=== PATIENT | female | born 1990 | race Caucasian/White ===

== ENCOUNTER 2021-03-03 11:40 | Observation (INO) | payer OTHER ==
[2021-03-03 12:26] LABS: Absolute Neutrophil Ct (ANC) 10.26 (1.4-6.9); BASOPHIL % 0.2 % (0.0-0.4); Basophil (Absolute #) 0.02 (0-0.4); Eosinophil (Absolute #) 0.13 (0-0.5); Hematocrit 37.8 % (35-47); Hemoglobin 12.8 gm/dl (12.0-16.0); Lymphocyte (Absolute #) 1.47 (1.0-4.6); Lymphocytes % 11.6 % (24.0-44.0); Mean Cell Volume 96.9 fl (78-100); Mean Corpuscular Hemoglobin 32.8 pg (26-32); Mean Corpuscular Hgb Concent. 33.9 g/dl (32-36); Mean Platelet Volume 10.9 fl (7.5-11.0); Monocyte (Absolute #) 0.77 (0.0-1.3); Monocytes % 6.1 % (0.0-12.0); Neutrophil % 81.1 % (36.0-66.0); Platelet Count 237 K/mm3 (150-450); White Blood Count 12.7 K/mm3 (4.0-10.5)
[2021-03-03 12:33] LABS: ALBUMIN 3.2 g/dL (3.5-5.0); ALKALINE PHOSPHATASE 191 U/L (38-126); BLOOD UREA NITROGEN 4 mg/dL (7-17); CHLORIDE 106 mmol/L (98-107); Calcium 9.3 mg/dL (8.4-10.2); Carbon Dioxide 22 mmol/L (22-30); Creatinine 1 0.51 mg/dL (0.52-1.04); EST GLOMERULAR FILTRATION RATE > 60.0 ML/MIN; Glucose 102 mg/dL (74-106); Potassium 4.1 mmol/L (3.5-5.1); SGOT/AST 33 U/L (14-36); SGPT/ALT 14 U/L (0-35); SODIUM 134 mmol/L (137-145); Total Protein 6.2 g/dL (6.3-8.2); Uric Acid 4.3 mg/dL (2.6-6.0)
--- NOTE | 2021-03-03 13:37 | XRAY ---
Indication: High blood pressure. Ultrasound biophysical profile exam performed. There is a single intrauterine with heart rate 134 BPM. Four-quadrant REY is 10.6 cm, largest pocket 5.6 cm. 2 points given for breathing, movements, tone, and qualitative amniotic fluid volume. Impression: Total biophysical profile score is 8 out of 8.
--- NOTE | 2021-03-03 13:52 | XRAY ---
Indication: Preeclampsia. High blood pressure. 2-dimensional OB ultrasound performed. Comparison: December 11, 2020. Again there is a single viable intrauterine in breech presentation. heart rate 137 bpm. anatomy previously documented. Fundal placenta without abruption/previa. BPD measures 9.20 cm corresponding to 37 weeks 3 days. HC measures 33.28 cm corresponding to 38 weeks 0 days. AC measures 34.33 cm corresponding to 38 weeks 2 day. FL measures 6.07 cm corresponding to 31 weeks 4 days. Estimated weight 6 lbs. 9 oz., +/-1 lb. 0 oz. Approximately 54 percentile. REY is 10.7 cm. Impression: Again single viable intrauterine with mean gestational age 36 weeks 2 days. Normal progression of . No new or acute findings.
[2021-03-03 17:28] VITALS: PULSE 76
[2021-03-03 17:30] VITALS: BP 132/87
== END 2021-03-03 16:05 | disposition home or self-care (01) ==
LOC: OB 11:40
PROVIDERS: ADMIT Family Medicine; ATTEND Family Medicine
DX: Z34.83 Encounter for supervision of other normal pregnancy, third trimester (principal); Z3A.36 36 weeks gestation of pregnancy
CPT/HCPCS: 36415; 59025; 76816; 76818; 80053; 84550; 85025; G0378

== ENCOUNTER 2021-03-17 06:10 | Inpatient (IN) | payer OTHER ==
[~2021-03-17 06:10] MED LIST: CEFAZOLIN 2 GM-D5W BAG** 2 GM/50 ML ML IV SCH; Lactated Ringers 1,000 ML IV ONE; Lactated Ringers 1,000 ML IV SCH; Pepcid 20 MG VIAL IV SCH; Reglan 10 MG/2 ML IV SCH; SOD CITRATE-CITRIC ACID SOLN PO ONE
[2021-03-17 06:55] LABS: Amphetamine,Urine NEGATIVE (NEGATIVE); Barbiturate,Urine NEGATIVE (NEGATIVE); Benzodiazepine,Urine NEGATIVE (NEGATIVE); Cocaine,Urine NEGATIVE (NEGATIVE); Methadone,Urine NEGATIVE (NEGATIVE); Opiate,Urine NEGATIVE (NEGATIVE); PCP,Urine NEGATIVE (NEGATIVE); THC,Urine NEGATIVE (NEGATIVE)
[2021-03-17 07:23] LABS: Absolute Neutrophil Ct (ANC) 8.07 (1.4-6.9); BASOPHIL % 0.1 % (0.0-0.4); Basophil (Absolute #) 0.01 (0-0.4); Eosinophil % 1.7 % (0.00-5.0); Eosinophil (Absolute #) 0.18 (0-0.5); Hematocrit 38.3 % (35-47); Hemoglobin 13.1 gm/dl (12.0-16.0); Lymphocyte (Absolute #) 1.83 (1.0-4.6); Mean Cell Volume 96.7 fl (78-100); Mean Corpuscular Hemoglobin 33.1 pg (26-32); Mean Corpuscular Hgb Concent. 34.2 g/dl (32-36); Mean Platelet Volume 11.7 fl (7.5-11.0); Monocyte (Absolute #) 0.65 (0.0-1.3); Monocytes % 6.1 % (0.0-12.0); Neutrophil % 75.1 % (36.0-66.0); Platelet Count 215 K/mm3 (150-450); Red Blood Count 3.96 M/mm3 (4.1-5.4); Red Cell Distribution Width 14.4 % (11.5-14.0); White Blood Count 10.7 K/mm3 (4.0-10.5)
[2021-03-17 07:24] LABS: INR 0.97 (0.8-3.0)
[2021-03-17 07:26] LABS: PTT 27.7 SECONDS (25.3-37.0)
[2021-03-17] MEDS ORDERED: BICITRA 30 ML CUP ONE (07:36)
[2021-03-17] MEDS ORDERED: CEFAZOLIN 2 GM-D5W BAG** 2 GM/50 ML ML IV ONE (07:36)
[2021-03-17 08:14] LABS: ABO TYPING O; RH TYPING POSITIVE
[2021-03-17 08:21] LABS: Antibody Screen NEGATIVE (NEGATIVE)
[2021-03-17] MEDS ORDERED: Astramorph-Pf 5 MG/10 ML IJ ONE (08:30)
[2021-03-17] MEDS ORDERED: PHENYLEPHRINE HCL ONE (08:44)
[2021-03-17] MEDS ORDERED: Pitocin 10 UNITS/ML ONE ×2 (08:44→09:24)
[2021-03-17] MEDS ORDERED: MARCAINE 0.5%-EPI 1:200,000 VL IJ ONE (09:00)
[2021-03-17] MEDS ORDERED: TUCKS TP PRN (09:00)
[2021-03-17] MEDS ORDERED: LANSINOH 40 GM TOP PRN (09:00)
[2021-03-17] MEDS ORDERED: PERCOCET TABLET 5/325MG PO PRN (09:00)
[2021-03-17] MEDS ORDERED: BENADRYL 50 MG/ML IV PRN (09:00)
[2021-03-17] MEDS ORDERED: Mylicon 80MG PO PRN (09:00)
[2021-03-17] MEDS ORDERED: HOLD NARCOTIC ANALGESICS AND SEDATIVES X24 HR MC PRN (09:00)
[2021-03-17] MEDS ORDERED: DEMEROL 50 MG IV PRN (09:00)
[2021-03-17] MEDS ORDERED: Dermoplast Spray TP PRN (09:00)
[2021-03-17] MEDS ORDERED: MORPHINE SULFATE 2 MG INJ IV PRN (09:00)
[2021-03-17] MEDS ORDERED: Sodium Chloride 0.9% 10 ML FLUSH Syringe IJ PRN (09:00)
[2021-03-17] MEDS ORDERED: Marcaine 0.5%/Epinephrine 10 ML ONE (09:00)
[2021-03-17] MEDS ORDERED: CLARITIN 10 MG PO PRN (09:00)
[2021-03-17] MEDS ORDERED: Nubain 10 MG/ML IV PRN (09:00)
[2021-03-17] MEDS ORDERED: Zofran 4 MG/2 ML VIAL IV PRN (09:00)
[2021-03-17] MEDS ORDERED: Narcan 0.4 MG/ML IV PRN (09:00)
[2021-03-17 10:50] LABS: Appearance SLIGHTLY CLOUDY (CLEAR); Bilirubin NEGATIVE (NEGATIVE); Blood SMALL Ery/ul (0-5); Epithelial Cells RARE /HPF (FEW); Glucose NEGATIVE (NEGATIVE); Ketones NEGATIVE (NEGATIVE); Leukocyte Esterase NEGATIVE (NEGATIVE); Mucus SLIGHT /HPF (NEGATIVE); Nitrite NEGATIVE (NEGATIVE); Non-Squamous Epithelial Cells FEW /HPF (FEW); Protein,Urine Dip 100 (Negative); Specific Gravity 1.017 (1.005-1.025); Urobilinogen NEGATIVE mg/dL (0-1)
[2021-03-17] MEDS: Dextrose 5%-Lr IV Solution 1000 ML 1,000 ML IV SCH ×2 (11:05→21:07)
[2021-03-17] MEDS ORDERED: TRANDATE 20 MG/4 ML SYRINGE IV PRN (11:17)
--- NOTE | 2021-03-17 13:24 | OP ---
SURGERY DATE/TIME: 03/17/2021 0810 PREOPERATIVE DIAGNOSES: 1) Breech presentation. 2) Gestational hypertension. 3) Term intrauterine . POSTOPERATIVE DIAGNOSES: 1) Breech presentation. 2) Gestational hypertension. 3) Term intrauterine . PROCEDURE: Primary low transverse section. SURGEON: Nikolay Yan M.D. ANESTHESIA: Spinal by [place] CRNA. ESTIMATED BLOOD LOSS: 400 cc. URINE OUTPUT: 50 ml clear straw-colored urine. SPECIMEN: Placenta was sent for pathology. DESCRIPTION OF PROCEDURE: After informed written consent was obtained, the patient was taken to the OR. She had spinal anesthesia placed and was prepped and draped in the usual sterile fashion after a Alejo catheter was inserted. After adequate level of anesthesia was assessed, a low transverse skin incision was made by knife. It was carried down through the subcutaneous fat to the level of the fascia which was nicked on both sides of the midline. The fascia was then extended horizontal using curved Campbell scissors. Next, the superior free edge of the fascia was grasped with Ame clamps and the underlying rectus muscles were dissected free. The same was repeated inferiorly. The peritoneal cavity was opened and extended in horizontal then a bladder flap was created and reflected over the lower uterine segment. Horizontal uterine incision was then made by knife and carried down to the level of the amniotic membranes which were carefully artificially ruptured. A viable male infant was delivered from the breech presentation. The baby passed meconium during delivery. Respiratory effort was slightly delayed but was present after stimulation. The oropharynx and nares were suctioned free. The cord was clamped and cut and then he was handed off to the awaiting nursery team. Placenta was manually extracted and the uterus was exteriorized. The uterine cavity was sponge curetted clean with lap sponge. The uterine incision was closed with #1 chromic in running locked fashion. A second layer was used to reinforce and control bleeding with good closure and good hemostasis achieved. Posterior cul-de-sac was wiped free of blood and clot with moist lap sponge and the uterus was returned to the peritoneal cavity where the lateral gutters were wiped free of blood and clot. The uterine incision was again carefully inspected and noted to have good closure and good hemostasis. Next, the fascia was closed with 0 Vicryl in running fashion with good closure and good hemostasis were achieved. The subcutaneous fat was irrigated with warm, sterile saline and any areas of bleeding were cauterized with electrocautery. Finally the skin layer was closed with 4-0 undyed Vicryl in running subcuticular fashion. Good closure and good hemostasis were achieved. Steri-Strips and occlusive dressing were placed over the incision and the patient was transferred to the recovery room in good condition.
[2021-03-17] MEDS: MOTRIN 400 MG PO PRN (21:06)
[2021-03-17] MEDS: Colace 100 MG PO SCH (21:06)
[2021-03-17] MEDS: FERREX 150 PO SCH (21:06)
[2021-03-17] MEDS ORDERED: Restoril 15 MG PO PRN (22:00)
[2021-03-18] MEDS: TYLENOL EXTRA STRENGTH 500 MG PO PRN ×3 (00:17→13:03)
[2021-03-18] MEDS: Dextrose 5%-Lr IV Solution 1000 ML 1,000 ML IV SCH (02:03)
[2021-03-18 05:52] LABS: Absolute Neutrophil Ct (ANC) 8.57 (1.4-6.9); BASOPHIL % 0.1 % (0.0-0.4); Basophil (Absolute #) 0.01 (0-0.4); Eosinophil % 0.6 % (0.00-5.0); Eosinophil (Absolute #) 0.07 (0-0.5); Hematocrit 33.1 % (35-47); Hemoglobin 11.1 gm/dl (12.0-16.0); Lymphocyte (Absolute #) 1.54 (1.0-4.6); Lymphocytes % 14.2 % (24.0-44.0); Mean Cell Volume 98.5 fl (78-100); Mean Corpuscular Hgb Concent. 33.5 g/dl (32-36); Mean Platelet Volume 11.6 fl (7.5-11.0); Monocyte (Absolute #) 0.62 (0.0-1.3); Monocytes % 5.7 % (0.0-12.0); Neutrophil % 79.4 % (36.0-66.0); Platelet Count 190 K/mm3 (150-450); Red Blood Count 3.36 M/mm3 (4.1-5.4); Red Cell Distribution Width 14.8 % (11.5-14.0); White Blood Count 10.8 K/mm3 (4.0-10.5)
[2021-03-18] MEDS: MOTRIN 400 MG PO PRN ×3 (05:53→19:30)
[2021-03-18] MEDS: Colace 100 MG PO SCH ×2 (10:53→22:56)
[2021-03-18] MEDS: FERREX 150 PO SCH (10:53)
[2021-03-18] MEDS: NORCO 5/325 MG PO PRN ×2 (17:15→22:56)
[2021-03-18] MEDS ORDERED: DIPRIVAN 200 MG/20 ML IV ONE (18:00)
[2021-03-18] MEDS ORDERED: BRIDION 200MG/2ML IV ONE (18:00)
[2021-03-18] MEDS ORDERED: SUBLIMAZE 100 MCG/2 ML IV ONE (18:00)
[2021-03-18] MEDS ORDERED: Versed 2 MG/2 ML Injection IV ONE (18:00)
[2021-03-18] MEDS ORDERED: Trandate 100 MG PO ONE (19:22)
[2021-03-19] MEDS: MOTRIN 400 MG PO PRN ×3 (01:28→14:10)
[2021-03-19] MEDS: NORCO 5/325 MG PO PRN ×3 (02:56→14:09)
[2021-03-19 04:45] VITALS: O2SAT 94
--- NOTE | 2021-03-19 08:59 | PCM.DS ---
Discharge Summary Date of Admission: 03/17/21 06:10 Admitting Physician: AMANDEEP HANEY Consults: Consults on Case 03/17/21 05:00 Notify Anesthesia Provider ROUTINE Notify Physician OF ADMISSION 03/17/21 09:00 Notify Anesthesia Provider PRN Primary Care Provider: AMANDEEP HANEY Allergies Allergies No Known Drug Allergies Allergy (Verified 03/17/21 07:29) Hospital Summary - Hospital Course Hospital Course: patient had primary at 38wks for breech presentation and gestational htn, required po labetalol after delivery. mild lochia, pain well controlled and tolerating po with no complications post-op - Vitals & Intake/Output Vital Signs: Vital Signs Temperature 97.9 F 03/19/21 02:00 Pulse Rate 93 H 03/19/21 02:00 Respiratory Rate 20 03/19/21 02:00 Blood Pressure 126/76 03/19/21 02:00 O2 Sat by Pulse Oximetry 94 L 03/19/21 02:00 Intake & Output: Intake & Output 03/16/21 03/17/21 03/18/21 03/19/21 11:59 11:59 11:59 11:59 Intake Total 2484 2450 Output Total 2600 Balance -116 2450 Weight 106.141 kg - Lab Result Diagrams: 03/18/21 05:45 Micro Results-Entire Visit: Microbiology 03/17/21 08:38 Urine Culture - Final Catherized NO GROWTH - Procedures and Test Procedures and Tests throughout Hospitalization: Therapy Orders & Screens 03/17/21 09:31 Standby ROUTINE Comment: Diagnosis: IUP Discharge Exam General Appearance: no apparent distress, obese Respiratory Exam: normal breath sounds, lungs clear, No respiratory distress Cardiovascular Exam: regular rate/rhythm, normal heart sounds Gastrointestinal/Abdomen Exam: soft, normal bowel sounds, other (incision c/d/i) Extremity Exam: normal inspection, normal range of motion Final Diagnosis/Problem List - Final Discharge Diagnosis/Problem (1) delivery delivered Current Visit: Yes Status: Acute Code(s): O82 - ENCOUNTER FOR DELIVERY WITHOUT INDICATION (2) Gestational hypertension Current Visit: Yes Status: Acute Code(s): O13.9 - GESTATIONAL HTN W/O SIGNIFICANT PROTEINURIA, UNSP TRIMESTER - Discharge Disposition: Home, Self-Care Condition: Stable Prescriptions: New Hydrocodone/Acetaminophen [Hydrocodone-Acetamin 5-325 mg ] 1 tab PO Q6HPRN PRN 5 Days #20 tablet MDD 4 PRN Reason: Pain Labetalol HCl 100 mg [Trandate 100 MG] 100 mg PO BID #60 tablet Continue Acetaminophen 325 mg [Tylenol 325 mg] 650 mg PO Q4-6HPRN PRN PRN Reason: Pain Discontinued Ferrous Sulfate [Iron] 325 mg PO HS Vits W-Ca,Fe,FA(<1Mg) [] 1 each PO HS Follow up with: AMANDEEP HANEY MD [Primary Care Provider] -
[2021-03-19] MEDS ORDERED: Trandate 100 MG PO SCH (10:00)
[2021-03-19] MEDS: FERREX 150 PO SCH (10:09)
[2021-03-19] MEDS: Colace 100 MG PO SCH (10:10)
[2021-03-19 14:26] VITALS: PULSE 79
[2021-03-19 15:18] VITALS: BP 140/72
== END 2021-03-19 15:00 | disposition home or self-care (01) | DRG 788 ==
LOC: OB 06:10 → OBSVTOIN 06:10
PROVIDERS: ADMIT Family Medicine; ATTEND Family Medicine
PROC: 10D00Z1 Extraction of Products of Conception, Low, Open Approach (ICD-10-PCS; principal; 2021-03-17)
DX: O32.1XX0 Maternal care for breech presentation, not applicable or unspecified (principal); O13.4 Gestational [pregnancy-induced] hypertension without significant proteinuria, complicating childbirth; Z3A.38 38 weeks gestation of pregnancy; Z37.0 Single live birth
CPT/HCPCS: 36415; 62322; 64488; 76937; 76942; 80307; 81001; 85025; 85610; 85730; 86850; 86900; 86901; 87086; 94799; J0690; J2250; J2274; J2370; J2405; J2590; J2704; J3010; L0625; A9270-GY

== ENCOUNTER 2021-03-20 20:19 | Observation (INO) | payer OTHER ==
[2021-03-20] MEDS ORDERED: Sodium Chloride 0.9% 1000 ML 0 ML ONE (21:25)
[2021-03-20] MEDS ORDERED: MORPHINE SULFATE 4 MG INJ IV ONE (21:33)
[2021-03-20] MEDS ORDERED: Reglan 10 MG/2 ML IV ONE (21:33)
[2021-03-20] MEDS ORDERED: BENADRYL 50 MG/ML IV ONE (21:33)
[2021-03-20] MEDS ORDERED: TRANDATE 20 MG/4 ML SYRINGE IV ONE ×3 (21:35→23:33)
[2021-03-20] MEDS ORDERED: BENADRYL 50 MG/ML ONE (21:41)
[2021-03-20] MEDS ORDERED: Lactated Ringers 1,000 ML IV ONE (21:41)
[2021-03-20] MEDS ORDERED: Reglan 10 MG/2 ML ONE (21:41)
[2021-03-20] MEDS ORDERED: MORPHINE SULFATE 4 MG INJ ONE (21:41)
--- NOTE | 2021-03-20 21:45 | ERPHSYRPT ---
- History of Present Illness Time Seen by Provider: 03/20/21 20:35 Source: patient Exam Limitations: no limitations Patient Subjective Stated Complaint: pt states she has had a headache and high blood pressure since before leaving the hospital after giving . states she took a nap this evening and woke up with increased pain. describes as pressure with intermittent shooting pains Triage Nursing Assessment: pt alert and oriented, answers questions approp. pt ambulatory with steady gait noted. respriations nonlabed with lungs cta. skin pink warm and dry. pupils equal and reactive. bilat upper and lower ext strength equal and wnl. Physician History: 31 years old status post secondary to elevated blood pressure/preeclampsia 3 days ago who was discharged yesterday presented with increasing headache. Patient report headache off and on for 3 days with worsening since morning, moderate to severe intensity, frontal, without any significant aggravating or relieving factors. Denies any visual disturbance. No numbness tingling or focal weakness. No difficulty speech. Does not report having history of migraines. She has been taking Beaver for postop pain but her headache is not improving. On presentation her blood pressure is 195 systolic. No upper abdominal pain. Timing/Duration: day(s) (3), gradual onset, worse Severity: moderate Modifying Factors: Worsens With: movement Associated Symptoms: nausea, headaches, No abdominal pain, No chest pain, No seizure Allergies/Adverse Reactions: No Known Drug Allergies Allergy (Verified 03/20/21 20:32) Home Medications: Acetaminophen 325 mg [Tylenol 325 mg] 650 mg PO Q4-6HPRN PRN 03/03/21 [History] Hx Tetanus, Diphtheria Vaccination/Date Given: Yes Hx Influenza Vaccination/Date Given: No Hx Pneumococcal Vaccination/Date Given: No Immunizations Up to Date: Yes Travel Risk - International Travel Have you traveled outside of the country in past 3 weeks: No - Coronavirus Screening Are you exhibiting any of the following symptoms?: No Close contact with a COVID-19 positive Pt in past 14-21 Days: No - Vaccine Status Have you recieved a Covid-19 vaccination: No - Review of Systems Constitutional: No Symptoms, No Fever Eyes: No Symptoms Ears, Nose, & Throat: No Symptoms Respiratory: No Symptoms Cardiac: No Symptoms Abdominal/Gastrointestinal: Abdominal Pain Genitourinary Symptoms: No Symptoms Musculoskeletal: No Symptoms Skin: No Symptoms Neurological: Headache Psychological: No Symptoms Endocrine: No Symptoms Hematologic/Lymphatic: No Symptoms Immunological/Allergic: No Symptoms All Other Systems: Reviewed and Negative - Past Medical History Neurological History: Epilepsy ENT History: No Pertinent History Cardiac History: Hypertension Respiratory History: No Pertinent History Endocrine Medical History: No Pertinent History Musculoskeletal History: No Pertinent History GI Medical History: Hemorrhoids History: No Pertinent History Psycho-Social History: No Pertinent History Female Reproductive Disorders: Other Other Medical History: 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, irregular periods - Past Surgical History Neuro Surgical History: No Pertinent History Cardiac: No Pertinent History Respiratory: No Pertinent History Gastrointestinal: No Pertinent History Genitourinary: No Pertinent History Musculoskeletal: No Pertinent History Female Surgical History: Dilation & Curettage, Section - Social History Smoking Status: Current some day smoker How long have you smoked: 8 YEARS Exposure to second hand smoke: Yes Drug Use: none Patient Lives Alone: No - Female History Hx Now: No (4 days pp) - Nursing Vital Signs Nursing Vital Signs: Initial Vital Signs Temperature 98.3 F 03/20/21 20:33 Pulse Rate 85 03/20/21 20:33 Respiratory Rate 16 03/20/21 20:33 Blood Pressure 195/113 03/20/21 20:33 O2 Sat by Pulse Oximetry 97 03/20/21 20:33 Pain Scale Pain Intensity 3 - Physical Exam General Appearance: no apparent distress, alert Eye Exam: PERRL/EOMI, eyes nml inspection Ears, Nose, Throat Exam: normal ENT inspection, TMs normal, pharynx normal, moist mucous membranes Neck Exam: normal inspection, non-tender, supple, full range of motion Respiratory Exam: normal breath sounds, lungs clear Cardiovascular Exam: regular rate/rhythm, normal heart sounds Gastrointestinal/Abdomen Exam: soft, normal bowel sounds, No tenderness Back Exam: normal inspection, normal range of motion Extremity Exam: normal inspection, normal range of motion, pelvis stable Neurologic Exam: alert, oriented x 3, cooperative, shipping manager II-XII nml as tested, normal mood/affect, nml cerebellar function, sensation nml, motor deficits, other (reflexes 2+), No sensory deficit SpO2 Interpretation: normal SpO2: 97 O2 Delivery: Room Air Ordered Tests: Active Orders 24 hr Category Date Time Status IV Insertion STAT Care 03/20/21 21:33 Active Oxygen-ED Only Nasal Cannula 2 lpm Care 03/20/21 21:33 Active CBC W DIFF Stat Lab 03/20/21 21:46 Completed CMP Stat Lab 03/20/21 21:46 Completed CULTURE,URINE Stat Lab 03/20/21 21:46 Received UA W/RFX UR CULTURE Stat Lab 03/20/21 21:46 Completed Uric Acid Stat Lab 03/20/21 21:46 Completed Transfer Order Routine Transfer 03/20/21 Ordered Medication Summary Generic Name Dose Route Start Last Admin Trade Name Freq PRN Reason Stop Dose Admin Magnesium Sulfate 1,000 mls @ 0 mls/hr 03/20/21 22:00 Magnesium Sulfate 40 Gm/1000 Ml H2o Premix IV 04/19/21 21:59 .Q0M DANIELLA Per Protocol Lactated Ringer's 1,000 mls @ 100 mls/hr 03/20/21 22:00 03/20/21 21:47 Lactated Ringers IV 04/19/21 21:59 100 mls/hr .Q10H DANIELLA Administration Discontinued Medications Generic Name Dose Route Start Last Admin Trade Name Freq PRN Reason Stop Dose Admin Diphenhydramine HCl 25 mg 03/20/21 21:33 03/20/21 21:49 Benadryl 50 Mg/Ml IV 03/20/21 21:34 25 mg STAT ONE Administration Diphenhydramine HCl Confirm 03/20/21 21:41 Benadryl 50 Mg/Ml Administered 03/20/21 21:42 Dose 50 mg .ROUTE .STK-MED ONE Sodium Chloride Confirm 03/20/21 21:25 Sodium Chloride 0.9% 1000 Ml Administered 03/20/21 21:26 Dose 1,000 mls @ ud .ROUTE .STK-MED ONE Labetalol HCl 10 mg 03/20/21 21:35 03/20/21 22:20 Trandate 20 Mg/4 Ml Syringe IV 03/20/21 21:36 10 mg STAT ONE Administration Labetalol HCl Confirm 03/20/21 21:41 Trandate 20 Mg/4 Ml Syringe Administered 03/20/21 21:42 Dose 20 mg IV .STK-MED ONE Metoclopramide HCl 10 mg 03/20/21 21:33 03/20/21 21:46 Reglan 10 Mg/2 Ml IV 03/20/21 21:34 10 mg STAT ONE Administration Metoclopramide HCl Confirm 03/20/21 21:41 Reglan 10 Mg/2 Ml Administered 03/20/21 21:42 Dose 10 mg .ROUTE .STK-MED ONE Morphine Sulfate 4 mg 03/20/21 21:33 03/20/21 21:51 Morphine Sulfate 4 Mg Inj IV 03/20/21 21:34 4 mg STAT ONE Administration Morphine Sulfate Confirm 03/20/21 21:41 Morphine Sulfate 4 Mg Inj Administered 03/20/21 21:42 Dose 4 mg .ROUTE .STK-MED ONE Lab/Rad Data: Laboratory Result Diagrams 03/20/21 21:46 03/20/21 21:46 Laboratory Results 03/20/21 03/20/21 03/20/21 Range/Units 22:04 21:46 21:46 WBC (4.0-10.5) K/mm3 RBC (4.1-5.4) M/mm3 Hgb (12.0-16.0) gm/dl Hct (35-47) % MCV (78-100) fl MCH (26-32) pg MCHC (32-36) g/dl RDW (11.5-14.0) % Plt Count (150-450) K/mm3 MPV (7.5-11.0) fl Gran % (36.0-66.0) % Eos # (Auto) (0-0.5) Absolute Lymphs (auto) (1.0-4.6) Absolute Monos (auto) (0.0-1.3) Lymphocytes % (24.0-44.0) % Monocytes % (0.0-12.0) % Eosinophils % (0.00-5.0) % Basophils % (0.0-0.4) % Absolute Granulocytes (1.4-6.9) Basophils # (0-0.4) Sodium 138 (137-145) mmol/L Potassium 3.6 (3.5-5.1) mmol/L Chloride 108 H (98-107) mmol/L Carbon Dioxide 22 (22-30) mmol/L Anion Gap 11.6 (5-15) MEQ/L BUN 9 (7-17) mg/dL Creatinine 0.63 (0.52-1.04) mg/dL Estimated GFR > 60.0 ML/MIN Glucose 95 (74-106) mg/dL Uric Acid 5.9 (2.6-6.0) mg/dL Calcium 8.9 (8.4-10.2) mg/dL Total Bilirubin 0.50 (0.2-1.3) mg/dL AST 54 H (14-36) U/L ALT 21 (0-35) U/L Alkaline Phosphatase 159 H (38-126) U/L Serum Total Protein 6.3 (6.3-8.2) g/dL Albumin 3.3 L (3.5-5.0) g/dL Urine Color (YELLOW) Urine Appearance (CLEAR) Urine pH (5-6) Ur Specific [place] (1.005-1.025) Urine Protein (Negative) Urine Ketones (NEGATIVE) Urine Blood (0-5) Mirza/ul Urine Nitrite (NEGATIVE) Urine Bilirubin (NEGATIVE) Urine Urobilinogen (0-1) mg/dL Ur Leukocyte Esterase (NEGATIVE) Urine WBC (Auto) (0-5) /HPF Urine RBC (Auto) (0-2) /HPF U Epithel Cells (Auto) (FEW) /HPF Urine Bacteria (Auto) (NEGATIVE) /HPF Urine Culture Reflexed (NO) Urine Glucose (NEGATIVE) mg/dL SARS-CoV-2 Ag (Rapid) NEGATIVE (NEGATIVE) 03/20/21 03/20/21 Range/Units 21:46 21:46 WBC 7.2 (4.0-10.5) K/mm3 RBC 3.57 L (4.1-5.4) M/mm3 Hgb 12.0 (12.0-16.0) gm/dl Hct 35.0 (35-47) % MCV 98.0 (78-100) fl MCH 33.6 H (26-32) pg MCHC 34.3 (32-36) g/dl RDW 14.6 H (11.5-14.0) % Plt Count 280 (150-450) K/mm3 MPV 10.9 (7.5-11.0) fl Gran % 71.0 H (36.0-66.0) % Eos # (Auto) 0.24 (0-0.5) Absolute Lymphs (auto) 1.36 (1.0-4.6) Absolute Monos (auto) 0.49 (0.0-1.3) Lymphocytes % 18.8 L (24.0-44.0) % Monocytes % 6.8 (0.0-12.0) % Eosinophils % 3.3 (0.00-5.0) % Basophils % 0.1 (0.0-0.4) % Absolute Granulocytes 5.13 (1.4-6.9) Basophils # 0.01 (0-0.4) Sodium (137-145) mmol/L Potassium (3.5-5.1) mmol/L Chloride (98-107) mmol/L Carbon Dioxide (22-30) mmol/L Anion Gap (5-15) MEQ/L BUN (7-17) mg/dL Creatinine (0.52-1.04) mg/dL Estimated GFR ML/MIN Glucose (74-106) mg/dL Uric Acid (2.6-6.0) mg/dL Calcium (8.4-10.2) mg/dL Total Bilirubin (0.2-1.3) mg/dL AST (14-36) U/L ALT (0-35) U/L Alkaline Phosphatase (38-126) U/L Serum Total Protein (6.3-8.2) g/dL Albumin (3.5-5.0) g/dL Urine Color STRAW (YELLOW) Urine Appearance CLEAR (CLEAR) Urine pH 7.0 (5-6) Ur Specific [place] 1.005 (1.005-1.025) Urine Protein 30 (Negative) Urine Ketones NEGATIVE (NEGATIVE) Urine Blood LARGE (0-5) Mirza/ul Urine Nitrite NEGATIVE (NEGATIVE) Urine Bilirubin NEGATIVE (NEGATIVE) Urine Urobilinogen NEGATIVE (0-1) mg/dL Ur Leukocyte Esterase NEGATIVE (NEGATIVE) Urine WBC (Auto) 26-50 (0-5) /HPF Urine RBC (Auto) 51-100 (0-2) /HPF U Epithel Cells (Auto) RARE (FEW) /HPF Urine Bacteria (Auto) NONE SEEN (NEGATIVE) /HPF Urine Culture Reflexed YES (NO) Urine Glucose NEGATIVE (NEGATIVE) mg/dL SARS-CoV-2 Ag (Rapid) (NEGATIVE) - Progress Progress Note: 03/20/21 21:43 31 years old with recent related to preeclampsia is evaluated for headache. She has a blood pressure which is significantly higher and technically patient is in preeclampsia, given labetalol, symptomatic treatment for headache and started on magnesium upon discussion with Dr. Hernandez and patient is being admitted. Do not think she needs a CT head and is more related to preeclampsia. This could be related to spinal headache and if no relief despite improvement in blood pressure, patient would need blood patch for which anesthesia would be consulted tomorrow morning. Discussed with : Cricket Will see patient in: hospital (observation) Counseled pt/family regarding: lab results, diagnosis - Departure Departure Disposition: Observation Clinical Impression: Pre-eclampsia affecting puerperium Headache Qualifiers: Headache type: unspecified Headache chronicity pattern: acute headache Intractability: not intractable Qualified Code(s): R51.9 - Headache, unspecified Condition: Stable Critical Care Time: Yes Critical Care Time(excluding separately billable procedures): Critical 30-74 mins Referrals: AMANDEEP HANEY MD [Primary Care Provider] -
[2021-03-20] MEDS ORDERED: Magnesium Sulfate 40 Gm/1000 Ml H2O Premix*** 1,000 ML IV ONE (21:48)
[2021-03-20 21:51] LABS: Absolute Neutrophil Ct (ANC) 5.13 (1.4-6.9); BASOPHIL % 0.1 % (0.0-0.4); Basophil (Absolute #) 0.01 (0-0.4); Eosinophil % 3.3 % (0.00-5.0); Eosinophil (Absolute #) 0.24 (0-0.5); Lymphocyte (Absolute #) 1.36 (1.0-4.6); Lymphocytes % 18.8 % (24.0-44.0); Mean Corpuscular Hemoglobin 33.6 pg (26-32); Mean Corpuscular Hgb Concent. 34.3 g/dl (32-36); Mean Platelet Volume 10.9 fl (7.5-11.0); Monocyte (Absolute #) 0.49 (0.0-1.3); Monocytes % 6.8 % (0.0-12.0); Platelet Count 280 K/mm3 (150-450); Red Blood Count 3.57 M/mm3 (4.1-5.4); Red Cell Distribution Width 14.6 % (11.5-14.0); White Blood Count 7.2 K/mm3 (4.0-10.5)
[2021-03-20 21:55] LABS: Appearance CLEAR (CLEAR); Bilirubin NEGATIVE (NEGATIVE); Blood LARGE Ery/ul (0-5); Epithelial Cells RARE /HPF (FEW); Glucose NEGATIVE (NEGATIVE); Ketones NEGATIVE (NEGATIVE); Leukocyte Esterase NEGATIVE (NEGATIVE); Nitrite NEGATIVE (NEGATIVE); Protein,Urine Dip 30 (Negative); RBC 51-100 /HPF (0-2); Specific Gravity 1.005 (1.005-1.025); Urobilinogen NEGATIVE mg/dL (0-1); WBC 26-50 /HPF (0-5)
[2021-03-20 21:56] LABS: Bacteria NONE SEEN /HPF (NEGATIVE)
[2021-03-20] MEDS ORDERED: Magnesium Sulfate 40 Gm/1000 Ml H2O Premix*** 1,000 ML IV SCH (22:00)
[2021-03-20] MEDS ORDERED: Lactated Ringers 1,000 ML IV SCH (22:00)
[2021-03-20 22:02] LABS: ALBUMIN 3.3 g/dL (3.5-5.0); ALKALINE PHOSPHATASE 159 U/L (38-126); ANION GAP 11.6 MEQ/L (5-15); BLOOD UREA NITROGEN 9 mg/dL (7-17); CHLORIDE 108 mmol/L (98-107); Calcium 8.9 mg/dL (8.4-10.2); Carbon Dioxide 22 mmol/L (22-30); Creatinine 1 0.63 mg/dL (0.52-1.04); EST GLOMERULAR FILTRATION RATE > 60.0 ML/MIN; Glucose 95 mg/dL (74-106); Potassium 3.6 mmol/L (3.5-5.1); SGOT/AST 54 U/L (14-36); SGPT/ALT 21 U/L (0-35); SODIUM 138 mmol/L (137-145); Total Protein 6.3 g/dL (6.3-8.2)
[2021-03-20 22:25] LABS: COVID AG -BINAX NOW RAPID TEST NEGATIVE (NEGATIVE)
[2021-03-20] MEDS ORDERED: MORPHINE SULFATE 2 MG INJ IV PRN (23:05)
[2021-03-20] MEDS ORDERED: TYLENOL 325 MG PO PRN (23:05)
[2021-03-20] MEDS ORDERED: Zofran 4 MG/2 ML VIAL IV PRN (23:05)
[2021-03-20] MEDS ORDERED: ROCEPHIN 1 Gm-D5w 50 ml Bag** 1 G/50 ML IVPB IV ONE (23:43)
[2021-03-20] MEDS: Lactated Ringers 1,000 ML IV SCH (23:46)
[2021-03-21] MEDS: HYDROCODONE-ACETAMIN 10-325 MG PO PRN ×3 (00:04→08:12)
[2021-03-21] MEDS: Pepcid 20 MG VIAL IV SCH ×3 (00:15→22:37)
[2021-03-21 00:32] LABS: Appearance CLEAR (CLEAR); Bilirubin NEGATIVE (NEGATIVE); Blood SMALL Ery/ul (0-5); Glucose NEGATIVE (NEGATIVE); Ketones NEGATIVE (NEGATIVE); Leukocyte Esterase NEGATIVE (NEGATIVE); Nitrite NEGATIVE (NEGATIVE); Protein,Urine Dip NEGATIVE (Negative); Specific Gravity 1.003 (1.005-1.025); Urobilinogen NEGATIVE mg/dL (0-1)
[2021-03-21 00:32] LABS: INR 0.97 (0.8-3.0)
[2021-03-21 00:35] LABS: PTT 29.7 SECONDS (25.3-37.0)
[2021-03-21 00:36] LABS: Bacteria NONE SEEN /HPF (NEGATIVE)
[2021-03-21] MEDS ORDERED: TRANDATE 20 MG/4 ML SYRINGE IV ONE ×2 (00:37→07:02)
[2021-03-21 06:58] LABS: BASOPHIL % 0.1 % (0.0-0.4); Basophil (Absolute #) 0.01 (0-0.4); Eosinophil % 3.6 % (0.00-5.0); Eosinophil (Absolute #) 0.29 (0-0.5); Hematocrit 36.7 % (35-47); Hemoglobin 12.3 gm/dl (12.0-16.0); Lymphocyte (Absolute #) 1.23 (1.0-4.6); Lymphocytes % 15.3 % (24.0-44.0); Mean Cell Volume 98.1 fl (78-100); Mean Corpuscular Hemoglobin 32.9 pg (26-32); Mean Corpuscular Hgb Concent. 33.5 g/dl (32-36); Mean Platelet Volume 10.5 fl (7.5-11.0); Monocyte (Absolute #) 0.49 (0.0-1.3); Monocytes % 6.1 % (0.0-12.0); Neutrophil % 74.9 % (36.0-66.0); Platelet Count 290 K/mm3 (150-450); Red Blood Count 3.74 M/mm3 (4.1-5.4); Red Cell Distribution Width 14.7 % (11.5-14.0)
[2021-03-21 07:02] LABS: ALBUMIN 3.4 g/dL (3.5-5.0); ALKALINE PHOSPHATASE 169 U/L (38-126); ANION GAP 11.6 MEQ/L (5-15); BLOOD UREA NITROGEN 8 mg/dL (7-17); CHLORIDE 106 mmol/L (98-107); Calcium 8.2 mg/dL (8.4-10.2); Carbon Dioxide 23 mmol/L (22-30); Creatinine 1 0.64 mg/dL (0.52-1.04); EST GLOMERULAR FILTRATION RATE > 60.0 ML/MIN; Glucose 105 mg/dL (74-106); Potassium 3.8 mmol/L (3.5-5.1); SGOT/AST 61 U/L (14-36); SGPT/ALT 23 U/L (0-35); SODIUM 137 mmol/L (137-145); Total Protein 6.4 g/dL (6.3-8.2)
[2021-03-21] MEDS ORDERED: TRANDATE 20 MG/4 ML SYRINGE IV PRN (08:12)
[2021-03-21] MEDS ORDERED: APRESOLINE 20 MG/ML INJ IV PRN (08:14)
[2021-03-21] MEDS: Adalat CC 30 MG TABLET PO SCH ×2 (08:21→11:41)
[2021-03-21] MEDS: Trandate 100 MG PO SCH ×2 (08:30→22:37)
[2021-03-21] MEDS ORDERED: PHENERGAN 25 MG PO ONE ×2 (10:56→11:15)
[2021-03-21] MEDS ORDERED: PERCOCET TABLET 5/325MG PO ONE (12:00)
[2021-03-21] MEDS: Lactated Ringers 1,000 ML IV SCH ×2 (12:13→13:15)
[2021-03-21] MEDS: Magnesium Sulfate 40 Gm/1000 Ml H2O Premix*** 1,000 ML IV SCH ×2 (16:22)
[2021-03-21] MEDS: PHENERGAN 25 MG PO SCH (17:09)
[2021-03-21] MEDS: OXYCODONE-ACETAMINOPHEN 10-325 PO PRN ×2 (17:09→21:08)
[2021-03-21] MEDS ORDERED: Calcium Gluconate 10% 1000 MG IV ONE (19:30)
[2021-03-21] MEDS ORDERED: Calcium Gluconate 10% 1000 MG IV PRN (20:40)
[2021-03-21] MEDS ORDERED: ROCEPHIN 1 Gm-D5w 50 ml Bag** 1 G/50 ML IVPB IV SCH ×2 (22:00)
[2021-03-22] MEDS: Lactated Ringers 1,000 ML IV SCH (01:23)
[2021-03-22] MEDS: Magnesium Sulfate 40 Gm/1000 Ml H2O Premix*** 1,000 ML IV SCH (02:03)
[2021-03-22] MEDS: PHENERGAN 25 MG PO SCH ×2 (02:03→11:37)
--- NOTE | 2021-03-22 08:51 | PCM.HP ---
History of Present Illness - Chief Complaint Chief Complaint: pre-eclampsia History of Present Illness: is a 31 year old female who returned to the hospital with complaints of headache and hypertension, she was delivered via primary 5 days ago for breech presentation and gestational htn at 38 wks, her preeclampsia workup was negative prior to delivery. she was sent home on labetalol day 2 with good bp control. she has been on magnesium and states she feels terrible, no headache and bp is well controlled. she now feels short of breath on the mag and is tearful about going home to her baby, headache is gone and pain from surgery is minimal, mild lochia. - Review of Systems Constitutional: No Fever, No Chills Cardiac: No Chest Pain, No Edema, No Syncope Abdominal/Gastrointestinal: No Abdominal Pain, No Nausea, No Vomiting, No Diarrhea Genitourinary Symptoms: No Dysuria Neurological: Headache (resolved since admission) All Other Systems: Reviewed and Negative Medications & Allergies Home Medications: Home Medication List Acetaminophen 325 mg [Tylenol 325 mg] 650 mg PO Q4-6HPRN PRN 03/03/21 [History Confirmed 03/21/21] Hydrocodone/Acetaminophen [Hydrocodone-Acetamin 5-325 mg ] 1 tab PO Q6HPRN PRN 5 Days #20 tablet MDD 4 03/19/21 [Rx Confirmed 03/21/21] Labetalol HCl 100 mg [Trandate 100 MG] 100 mg PO BID #60 tablet 03/19/21 [Rx Confirmed 03/21/21] Allergies/Adverse Reactions: Allergies Allergy/AdvReac Type Severity Reaction Status Date / Time No Known Drug Allergies Allergy Verified 03/21/21 01:47 - Past Medical History Past Medical History: Yes Neurological History: Epilepsy ENT History: No Pertinent History Cardiac History: Hypertension Respiratory History: No Pertinent History Endocrine Medical History: No Pertinent History Musculoskelatal History: No Pertinent History GI Medical History: Hemorrhoids History: No Pertinent History Pyscho-Social History: No Pertinent History Reproductive Disorders: Other Comment: 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, irregular periods - Female History Are you now?: No (4 days pp) Expected Date of Delivery: 03/27/21 - Past Surgical History Past Surgical History: Yes Neuro Surgical History: No Pertinent History Cardiac History: No Pertinent History Respiratory Surgery: No Pertinent History GI Surgical History: No Pertinent History Genitourinary Surgical Hx: No Pertinent History Musculskeletal Surgical Hx: No Pertinent History Female Surgical History: Dilation & Curettage, Section - Social History Smoking Status: Current some day smoker How long have you smoked: 8 YEARS Exposure to second hand smoke: Yes Alcohol: None Drug Use: none - Physical Exam Vital Signs: Vital Signs - 24 hr Pulse Resp BP BP Pulse Ox 03/22/21 06:56 78 12 130/80 98 03/22/21 06:00 73 12 121/73 98 03/22/21 05:00 73 10 L 122/72 98 03/22/21 04:00 76 11 L 121/66 96 03/22/21 03:00 79 12 115/70 97 03/22/21 02:00 79 12 137/83 97 03/22/21 01:00 81 8 L 148/86 95 03/22/21 00:00 91 H 8 L 138/87 96 03/21/21 23:00 84 16 135/81 95 03/21/21 22:00 86 12 149/95 96 03/21/21 21:00 87 9 L 152/96 97 03/21/21 20:00 87 16 134/79 97 03/21/21 19:20 85 139/79 95 03/21/21 18:30 85 137/74 03/21/21 18:00 91 H 155/105 98 03/21/21 17:30 86 156/101 94 L 03/21/21 16:00 83 153/91 94 L 03/21/21 15:20 90 140/76 03/21/21 15:00 95 03/21/21 14:30 84 136/79 03/21/21 14:00 97 03/21/21 13:00 89 94 L 03/21/21 12:00 91 H 131/70 96 03/21/21 11:00 91 H 140/84 97 03/21/21 10:00 95 H 130/78 96 03/21/21 09:00 99 H 20 142/81 142/81 99 Oxygen-Last 24 hours Oxygen Flowrate (L/min)-RT 1 Oxygen Flowrate (L/min)-RT 2 Oxygen Flowrate (L/min)-RT 2 Oxygen Flowrate (L/min)-RT 2 Oxygen Flowrate (L/min)-RT 2 Oxygen Flowrate (L/min)-RT 2 General Appearance: no apparent distress, obese Neurologic Exam: alert, oriented x 3 Respiratory Exam: normal breath sounds, lungs clear, No respiratory distress Cardiovascular Exam: regular rate/rhythm, normal heart sounds, normal peripheral pulses Gastrointestinal/Abdomen Exam: soft, normal bowel sounds, other (incision c/d/i, well approximated and clean. steri strips intact), No tenderness, No mass Extremity Exam: swelling (1+ swelling BLE, DTR diminished on magnesium) Wound Assessment: Skin/Wound Assessment Wound/Incision Assessment Start: 03/21/21 01:55 Text: Status: Active Freq: Q6H Protocol: Document 03/22/21 02:00 MS (Rec: 03/22/21 02:22 MS [id number]) Wound/Incision Assessment Lower Medial Abdomen Wound Assessment Shift Assessment Wound Type Incision Wound Stage Non Pressure Wound Dressing Status Dry & Intact Drainage Amount Minimal Drainage Description Serosanguineous Drainage Odor None/Absent General Appearance Well Approximated,Asymptomatic ,Open to air Surrounding Tissue Compo Comment steri strips clean, dry and intact Wound Photo Photo Taken No Results - Labs Lab/Micro Results: Lab Results-Last 24 Hours 03/21/21 03/21/21 03/22/21 Range/Units 12:23 18:43 00:30 Magnesium 5.7 H* 8.3 H* 9.7 H* (1.6-2.3) mg/dL 03/22/21 Range/Units 06:45 Magnesium 8.4 H* (1.6-2.3) mg/dL - Radiology Impressions Radiology Exams & Impressions: Radiology Procedures Category Date Time Status HEAD WITHOUT CONTRAST [CT] Urgent Exams 03/21/21 21:30 Taken - Other Procedures and Tests Respiratory Therapy 03/22/21 03:42 Oxygen Nasal Cannula 2 lpm Assessment/Plan (1) Pre-eclampsia affecting puerperium Current Visit: Yes Status: Acute Assessment & Plan: will d/c mag, continue labetalol 200mg bid, remove jerez when mag effect resolved and see if bp remains well controlled and patient able to be up and feeling ok might be able to discharge this evening or tomorrow. Code(s): O14.95 - UNSPECIFIED PRE-ECLAMPSIA, COMPLICATING THE PUERPERIUM (2) Gestational hypertension Current Visit: No Status: Acute Code(s): O13.9 - GESTATIONAL HTN W/O SIGNIFICANT PROTEINURIA, UNSP TRIMESTER (3) delivery delivered Current Visit: No Status: Acute Code(s): O82 - ENCOUNTER FOR DELIVERY WITHOUT INDICATION
--- NOTE | 2021-03-22 09:03 | XRAY ---
Indication: Severe headache. Hypertension. Multiple contiguous axial images obtained through the head without contrast. Comparison: None Normal appearing brain parenchyma, ventricles, and bony calvarium. 1 cm maxillary sinus polyp/retention cyst. Remaining visualized paranasal sinuses and mastoid air cells are clear. Impression: Right maxillary sinus polyp/retention cyst. Normal CT head without contrast exam. Comment: Preliminary interpretation was made by [facility]. No critical discrepancy.
[2021-03-22 11:18] VITALS: O2SAT 96
[2021-03-22] MEDS: Trandate 100 MG PO SCH (11:52)
[2021-03-22] MEDS: Pepcid 20 MG VIAL IV SCH (11:54)
--- NOTE | 2021-03-22 16:29 | PCM.DS ---
Discharge Summary Date of Admission: 03/21/21 19:00 Admitting Physician: AMANDEEP HANEY Consults: Consults on Case 03/20/21 23:20 Notify Physician ROUTINE Primary Care Provider: AMANDEEP HANEY Allergies Allergies No Known Drug Allergies Allergy (Verified 03/21/21 01:47) Hospital Summary - Hospital Course Hospital Course: patient was admitted with hypertension and headache post delivery. she was started on iv magnesium and increase in her labetalol - Vitals & Intake/Output Vital Signs: Vital Signs Temperature 97.9 F 03/22/21 15:00 Pulse Rate 94 H 03/22/21 16:09 Respiratory Rate 20 03/22/21 15:00 Blood Pressure 118/79 03/22/21 16:09 O2 Sat by Pulse Oximetry 96 03/22/21 09:00 Intake & Output: Intake & Output 03/20/21 03/21/21 03/22/21 03/23/21 11:59 11:59 11:59 11:59 Intake Total 3854 5763 Output Total 5575 5950 200 Balance -1721 -187 -200 Weight 101.2 kg 97.9 kg - Lab Result Diagrams: 03/21/21 06:30 03/21/21 06:30 Lab Results-Last 24 Hrs: Lab Results-Last 24 Hours 03/21/21 03/22/21 03/22/21 Range/Units 18:43 00:30 06:45 Magnesium 8.3 H* 9.7 H* 8.4 H* (1.6-2.3) mg/dL Micro Results-Entire Visit: Microbiology 03/20/21 00:26 Urine Culture - Final Urine, Indwelling Catheter NO GROWTH 03/20/21 21:46 Urine Culture - Final Urine, Void <10K NORMAL SKIN PRISCA PROBABLE SKIN CONTAMINANT - Radiology Exams Ordered Rad Exams-Entire Visit: Radiology Procedures Category Date Time Status HEAD WITHOUT CONTRAST [CT] Urgent Exams 03/21/21 21:30 Completed - Procedures and Test Procedures and Tests throughout Hospitalization: Therapy Orders & Screens 03/22/21 03:42 Oxygen Nasal Cannula 2 lpm Comment: Diagnosis: pre-eclampsia Discharge Exam General Appearance: no apparent distress, alert, obese Neurologic Exam: alert Respiratory Exam: normal breath sounds, lungs clear, No respiratory distress Cardiovascular Exam: regular rate/rhythm, normal heart sounds Gastrointestinal/Abdomen Exam: soft, other (incision c/d/i), No tenderness, No mass Extremity Exam: normal inspection, normal range of motion Wound Assessment: Skin/Wound Assessment Wound/Incision Assessment Start: 03/21/21 01:55 Text: Status: Active Freq: Q6H Protocol: Document 03/22/21 14:00 MS (Rec: 03/22/21 14:12 MS [id number]) Wound/Incision Assessment Lower Medial Abdomen Wound Assessment Shift Assessment Wound Type Incision Wound Stage Non Pressure Wound Dressing Status Dry & Intact Drainage Amount Minimal Drainage Description Serosanguineous Drainage Odor None/Absent General Appearance Well Approximated,Asymptomatic ,Open to air Surrounding Tissue [place] Comment steri strips remain clean, dry and intact Final Diagnosis/Problem List - Final Discharge Diagnosis/Problem (1) Pre-eclampsia affecting puerperium Current Visit: Yes Status: Acute Code(s): O14.95 - UNSPECIFIED PRE-E CLAMPSIA, COMPLICATING THE PUERPERIUM (2) Gestational hypertension Current Visit: No Status: Acute Code(s): O13.9 - GESTATIONAL HTN W/O SIGNIFICANT PROTEINURIA, UNSP TRIMESTER (3) delivery delivered Current Visit: No Status: Acute Code(s): O82 - ENCOUNTER FOR DELIVERY WITHOUT INDICATION - Discharge Disposition: Home, Self-Care Condition: Stable Prescriptions: New Labetalol HCl 200 mg PO BID #60 tablet Continue Acetaminophen 325 mg [Tylenol 325 mg] 650 mg PO Q4-6HPRN PRN PRN Reason: Pain Hydrocodone/Acetaminophen [Hydrocodone-Acetamin 5-325 mg ###] 1 tab PO Q6HPRN PRN 5 Days #20 tablet MDD 4 PRN Reason: Pain Discontinued Labetalol HCl 100 mg [Trandate 100 MG] 100 mg PO BID #60 tablet Follow up with: AMANDEEP HANEY MD [Primary Care Provider] - 03/26/21 10:00 am
[2021-03-22 17:32] VITALS: BP 144/92; PULSE 80
== END 2021-03-22 17:15 | disposition home or self-care (01) ==
LOC: ED 20:19 → MED SURG 23:00 → OBSVTOIN 03-21 19:00 → INTOOBSV 03-21 19:00
PROVIDERS: ADMIT Family Medicine; ATTEND Family Medicine
DX: O13.5 Gestational [pregnancy-induced] hypertension without significant proteinuria, complicating the puerperium (principal); O14.95 Unspecified pre-eclampsia, complicating the puerperium; R51.9 Headache, unspecified
CPT/HCPCS: 36000; 36415; 70450; 80053; 81001; 83735; 84550; 85025; 85610; 85730; 87086; 94762; 96374; 96375; 99000; 99285; G0378; J0360; J0696; J1200; J2270; J2405; A9270-GY

== ENCOUNTER 2023-05-26 11:32 | Emergency (ER) | payer OTHER ==
[2023-05-26] MEDS ORDERED: HYDROCODONE-ACETAMIN 2.5-108/5 ML SOLUTION PO STA (11:46)
--- NOTE | 2023-05-26 11:54 | ERPHSYRPT ---
- History of Present Illness Time Seen by Provider: 05/26/23 11:45 Source: patient Exam Limitations: no limitations Patient Subjective Stated Complaint: Pt states "When I bend over or cough my head stars to pound. It has been going on for the past three days.". "Is there any way I could get a covid test as well." Triage Nursing Assessment: Pt presented alert and oriented X 3, skin wpd. Pt ambulates with an upright steady gait, able to speak in clear full sentences. Physician History: This is a 33-year-old white female patient who has had a headache and cough for the last 3 days. It is not the worst headache she has ever had. She has not suffered any acute traumatic injury. She recently completed [id number] medication for sinus congestion. Patient denies chest pain. Patient denies shortness of breath. She has not had any nausea vomiting or diarrhea. She denies abdominal pain. Patient would like a COVID test. She feels as though she has the flu. Quality: aching Head Pain Location: parietal (Left side) Severity of Pain-Max: mild (To moderate) Severity of Pain-Current: mild (To moderate) Recent Head Trauma: no recent headache/trauma Modifying Factors: Improves With: exposure to light, noise Associated Symptoms: sensitive to light, No fever/chills, No loss of consciousness, No nausea/vomiting, No neck pain, No vision changes Previous symptoms: no prior history Allergies/Adverse Reactions: No Known Drug Allergies Allergy (Verified 03/21/21 01:47) Hx Tetanus, Diphtheria Vaccination/Date Given: Yes Hx Influenza Vaccination/Date Given: No Hx Pneumococcal Vaccination/Date Given: No Immunizations Up to Date: Yes Travel Risk - International Travel Have you traveled outside of the country in past 3 weeks: No - Coronavirus Screening Are you exhibiting any of the following symptoms?: Yes Symptoms: Headaches/Body Aches/Fatigue Close contact with a COVID-19 positive Pt in past 14-21 Days: No - Vaccine Status Have you recieved a Covid-19 vaccination: No - Review of Systems Constitutional: No Symptoms Eyes: No Symptoms Ears, Nose, & Throat: No Symptoms Respiratory: No Symptoms Cardiac: No Symptoms Abdominal/Gastrointestinal: No Symptoms Genitourinary Symptoms: No Symptoms Musculoskeletal: No Symptoms Skin: No Symptoms Neurological: Headache Psychological: No Symptoms Endocrine: No Symptoms Hematologic/Lymphatic: No Symptoms Immunological/Allergic: No Symptoms All Other Systems: Reviewed and Negative - Past Medical History Pertinent Past Medical History: Yes Neurological History: Epilepsy ENT History: No Pertinent History Cardiac History: Hypertension Respiratory History: No Pertinent History Endocrine Medical History: No Pertinent History Musculoskeletal History: No Pertinent History GI Medical History: Hemorrhoids History: No Pertinent History Psycho-Social History: No Pertinent History Female Reproductive Disorders: Other Other Medical History: 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, irregular periods - Past Surgical History Past Surgical History: Yes Neuro Surgical History: No Pertinent History Cardiac: No Pertinent History Respiratory: No Pertinent History Gastrointestinal: No Pertinent History Genitourinary: No Pertinent History Musculoskeletal: No Pertinent History Female Surgical History: Dilation & Curettage, Section - Social History Smoking Status: Current some day smoker How long have you smoked: 8 YEARS Exposure to second hand smoke: Yes Drug Use: none Patient Lives Alone: No - Female History Hx Last Menstrual Period: 04/24/2023 Hx Now: (unknown) - Nursing Vital Signs Nursing Vital Signs: Initial Vital Signs Temperature 97.1 F 05/26/23 11:36 Pulse Rate 76 05/26/23 11:36 Respiratory Rate 18 05/26/23 11:36 Blood Pressure 139/89 05/26/23 11:36 O2 Sat by Pulse Oximetry 99 05/26/23 11:36 Pain Scale Pain Intensity 4 - Physical Exam General Appearance: no apparent distress, alert, anxiety Eye Exam: PERRL/EOMI, eyes nml inspection Ears, Nose, Throat Exam: normal ENT inspection, moist mucous membranes Neck Exam: normal inspection, non-tender, supple, full range of motion Respiratory Exam: normal breath sounds, lungs clear, airway intact, No chest tenderness, No respiratory distress Cardiovascular Exam: regular rate/rhythm, normal heart sounds, normal peripheral pulses Gastrointestinal/Abdominal Exam: soft, normal bowel sounds, No tenderness Extremity Exam: normal inspection, normal range of motion, pelvis stable Mental Status Exam: alert, oriented x 3, cooperative animal assisted therapist Exam: normal hearing, normal speech, PERRL, tongue midline Coordination/Gait Exam: normal gait, normal cerebellar function Motor/Sensory Exam: no motor deficit, no sensory deficit Skin Exam: normal color, warm, dry Lymphatic Exam: No adenopathy SpO2 Interpretation: normal SpO2: 99 O2 Delivery: Room Air - Course Nursing assessment & vital signs reviewed: Yes Ordered Tests: Active Orders 24 hr Category Date Time Status CHEST 1 VIEW (PORTABLE) Stat Exams 05/26/23 11:42 Completed Medication Summary Discontinued Medications Generic Name Dose Route Start Last Admin Trade Name Arnol PRN Reason Stop Dose Admin Hydrocodone Bitart/Acetaminophen 15 ml 05/26/23 11:46 05/26/23 12:33 Hydrocodone/Acetaminophen 5 Ml Udcup PO 05/26/23 11:47 15 ml STAT STA Administration Hydrocodone Bitart/Acetaminophen Confirm 05/26/23 12:32 Hydrocodone/Acetaminophen 5 Ml Udcup Administered 05/26/23 12:33 Dose 15 ml .ROUTE .STK-MED ONE Lab/Rad Data: Laboratory Results 05/26/23 05/26/23 Range/Units 11:50 11:50 Influenza Type A Ag NEGATIVE (NEGATIVE) Influenza Type B Ag NEGATIVE (NEGATIVE) RSV (PCR) NEGATIVE (NEGATIVE) SARS-CoV-2 (PCR) NEGATIVE (NEGATIVE) Group A Strep Antibody NOT DETECTED (NEGATIVE) - Progress Progress: improved, re-examined Air Movement: good Progress Note: 05/26/23 12:15 Chest x-ray was interpreted by the radiologist and I reviewed the impression. It is a normal chest x-ray without evidence of acute cardiopulmonary processes. Blood Culture(s) Obtained: No Counseled pt/family regarding: lab results, diagnosis, need for follow-up, rad results - Departure Departure Disposition: Home Clinical Impression: Cough, Headache, Viral syndrome, Bronchitis Condition: Stable Critical Care Time: No Referrals: AMANDEEP HANEY MD [Primary Care Provider] - Follow up/PCP as directed Additional Instructions: Take your medication as prescribed. Follow-up with your primary care provider for further evaluation management. Prescriptions: Hydrocodone/Acetaminophen [Hydrocodone-Acetamn 7.5-325/15] 10 ml PO Q8H PRN PRN #120 ml MDD 30 ml PRN Reason: Cough Prednisone 10 mg [Deltasone 10 mg] 10 mg PO TID #12 tablet
--- NOTE | 2023-05-26 12:13 | XRAY ---
Indication: Cough. Comparison: None Portable chest demonstrates normal heart, lungs, and bony thorax.
[2023-05-26] MEDS ORDERED: HYDROCODONE-ACETAMIN 2.5-108/5 ML SOLUTION ONE (12:32)
[2023-05-26 13:09] LABS: INFLUENZA A NEGATIVE (NEGATIVE); INFLUENZA B NEGATIVE (NEGATIVE); RESPIRATORY SYNCTIAL VIRUS NEGATIVE (NEGATIVE); SARS-CoV-2 Xpert Express NEGATIVE (NEGATIVE)
[2023-05-26 13:19] VITALS: O2SAT 99
[2023-05-26 13:53] VITALS: BP 116/72; PULSE 72
== END 2023-05-26 13:49 | disposition home or self-care (01) ==
LOC: ED 11:32
DX: B34.9 Viral infection, unspecified (principal); J40 Bronchitis, not specified as acute or chronic; R51.9 Headache, unspecified; R05.1 Acute cough; I10 Essential (primary) hypertension; Z79.891 Long term (current) use of opiate analgesic; Z79.52 Long term (current) use of systemic steroids; Z28.310 Unvaccinated for COVID-19; Z72.0 Tobacco use
CPT/HCPCS: 0241U; 71045; 87651; 99283; A9270-GY